=== PATIENT | female | born 2000 | race Caucasian/White ===

== ENCOUNTER 2023-07-24 18:22 | Inpatient (IN) | payer OTHER, SELFPAY ==
[2023-07-24 11:52] VITALS: BP 123/83
[2023-07-24 12:14] LABS: % Basophils 0.7 % (0-2); % Eosinophils 5.7 % (0-6); % Immature Granulocytes 0.2 % (0-0.5); % Lymphocytes 14.8 % (20.5-51.1); % Monocytes 8.5 % (1.7-9.3); % Neutrophils 70.1 % (42.2-75.2); Absolute Eosinophils 0.3 10^3/uL (0-0.7); Absolute Lymphocytes 0.9 10^3/uL (1.2-3.4); Absolute Monocytes 0.5 10^3/uL (0.1-0.6); Absolute Neutrophils 4.2 10^3/uL (1.4-6.5); Hematocrit 39.2 % (37.0-47.0); Hemoglobin 13.2 g/dL (12.0-16.0); Mean Corp Hgb Conc. 33.7 g/dL (33.0-37.0); Mean Corpuscular Hgb 30.1 pg (27.0-31.0); Mean Corpuscular Volume 89.5 fL (81.0-99.0); Mean Platelet Volume 9.3 fL (7.4-10.4); Nucleated Red Blood Cells % 0 %; Platelet Count 318 10^3/uL (130-400); Red Blood Cell Count 4.38 10^6/uL (4.20-5.40); Red Cell Dist. Width 13.2 % (11.5-14.5)
[2023-07-24 12:30] LABS: HCG, Serum Qualitative Screen Negative
[2023-07-24 12:34] LABS: ALT (SGPT) 476 U/L (0-35); AST (SGOT) 261 U/L (14-36); Albumin 4.5 g/dl (3.5-5.0); Alkaline Phosphatase 253 U/L (38-126); Blood Urea Nitrogen 8 mg/dl (7-17); Calcium 9.3 mg/dl (8.4-10.2); Carbon Dioxide 28 mmol/L (22-30); Glucose 105 mg/dl (70-99); Lipase 133 U/L (23-300); Sodium 136 mmol/L (135-145); Total Bilirubin 10.5 mg/dl (0.2-1.3); Total Protein 7.8 g/dl (6.3-8.2); eGFR > 60.00
[2023-07-24 12:39] LABS: Chloride 100 mmol/L (98-107)
--- NOTE | 2023-07-24 14:40 | ED.GENMED ---
History of Present Illness
General
Chief Complaint: Abdominal Symptoms
Time Seen by Provider: 07/24/23 14:17
Travel History
Have you had any contact with someone who has COVID-19?: No
Do you have any symptoms of coronavirus? Fever > 100 degrees, chills, cough, shortness of breath, sore throat, loss of taste or smell, muscle aches, or headache?: No
History of Present Illness
History of Present Illness:
23-year-old female with history of Graves' disease (no longer medicated) presents to the emergency department for evaluation of upper abdominal pain associated with intractable vomiting for the past 5 days. She developed jaundice over the past 24
hours prompting her to come to the hospital. Pain radiates from the epigastrium to the back. She has been unable to tolerate any p.o. food or fluids during this time. No history of intra-abdominal surgeries. She denies alcohol use or illicit
substance use, does have her marijuana medical card but does not use this routinely. Has taken 1 dose of Tylenol daily for the pain.
Past History
Past History
ED Past Medical History: Hyperthyroidism
ED Past Surgical History: Other (Varicose veins)
Social History
Tobacco: Non-smoker
Alcohol: Occasional
Drug: Marijuana
Personal: Single
Living: with family
Review of Systems
Review of Systems
Allergies reviewed?: Yes
All Other Systems: ROS reviewed and negative except as documented in HPI and ROS
Phy Exam
Physical Exam
Physical Exam:
GEN: Well appearing, NAD, WDWN
Eyes: PERRLA, EOMs intact, severe scleral icterus
HENT: NCAT, oral mucosa dry
Lungs: CTAB, no wheezes, rales, rhonchi, normal chest wall excursion
Cardiac: RRR, no M/R/G, no peripheral edema. Radial pulses 2+ bilat
Abdomen: Abdomen is soft, moderate to severe tenderness to the right upper quadrant and epigastrium, there is a positive Ríos sign, no rigidity
Neuro: AO x 3
MSK: No gross deformity or ecchymosis. No edema. No digital clubbing
Skin: No rashes, petechiae. Grossly jaundiced
Psych: Calm, cooperative, proper hygiene
Course
Orders/Labs/Results
Orders:
Orders
07/24/23 11:54
Test Result ONCE
07/24/23 12:04
Complete Blood Count/With Diff Urgent
Comprehensive Metabolic Panel Urgent
Creatine Phosphokinase Urgent
Direct Bilirubin Urgent
HCG, Serum Qualitative Screen Urgent
Lipase Urgent
07/24/23 14:39
0.9% Sodium Chloride 1000 ml [Nss] 1,000 ml IV BOLUS
US Abdomen Complete/Upper Urgent
Comment:
Reason For Exam: RUQ pain/jaundice
07/24/23 14:55
Lactic Acid Q4H
Comment: CANCEL 2nd LACTIC ACID IF 1st LACTIC ACID IS LESS THAN 2
Prothrombin Time Urgent
Urinalysis Reflex To Culture Urgent
Date Specimen was Collected: 07/24/23
Time Specimen was Collected: 14:53
Urine Microscopic Reflex Cult Urgent
Blood Culture Q30M
GLADIS Source: Blood/Venous
Specimen Description:
07/24/23 Dinner
NPO
Allow oral meds: Yes
Allow clear liquids: Sips of Clears
07/24/23 15:09
Blood Culture Q30M
GLADIS Source: Blood/Venous
Specimen Description:
07/24/23 15:38
Add On- LAB Urgent
Tests Added?: direct bilirubin; CPK
07/24/23 17:08
MetroNIDAZOLE 500 MG/100 ML [Flagyl 500 mg] 100 ml IV NOW
07/24/23 17:17
Ciprofloxacin 400 mg/[id number] [Cipro 400 mg] 200 ml IV NOW
07/24/23 17:32
Admit/Transfer Patient As Directed
Co-Sign Provider:
Level of Care: Inpatient admission
Assign to:: Medical/Surgical
Physician / Group: Maikol Maher
Diagnosis: obstructive jaundice
Reason for Hospitalization: obstructive jaundice
Expected length of stay greater than two midnights?: Yes
ELOS- Estimated Length of Stay in days: 3
I certify the patient meets the requirements for IP care: Yes
Code Status As Directed
Resuscitation Status: Full Code
07/24/23 20:26
0.9% Sodium Chloride 1000 ml [Nss] 1,000 ml IV 100 mls/hr
Ketorolac [Toradol] 10 mg IV Q6HPRN PRN
Morphine Sulfate 2 mg IV Q4HPRN PRN
Ondansetron Injectable [Zofran] 4 mg IV Q6HPRN PRN
07/24/23 20:26
Consult Surgery [SURGICAL CONSULT] Routine
Consulting Provider: Shane Gorman
Was physician already notified: Yes
Reason for consult: cholelithiasis
GASTROINTESTINAL CONSULT Routine
Consulting Provider: Bree Mcpherson
Was physician already notified: Yes
Reason for consult: obstructive jaundice
MRI Abdomen [MR Abdomen Without Contrast] Routine
Comment: MRI/MRCP
Reason For Exam: jaundice
Recent pill cam endoscopy?: No
Activity As Directed
Activity Level: As Tolerated
Pneumatic Compression Sleeves As Directed
Type: Knee high
Vital Signs As Directed
Frequency: Per unit guidelines
DX Deep Vein Thrombosis Video Routine
07/25/23 02:00
MetroNIDAZOLE 250 MG/50 ML [Flagyl 250 mg] 50 ml IV Q8H
07/25/23 06:00
Complete Blood Count/No Diff IN AM
Comprehensive Metabolic Panel IN AM
07/25/23 07:00
Ciprofloxacin 400 mg/[id number] [Cipro 400 mg] 200 ml IV Q12H
07/26/23 06:00
Complete Blood Count/No Diff IN AM
Comprehensive Metabolic Panel IN AM
07/27/23 06:00
Complete Blood Count/No Diff IN AM
Comprehensive Metabolic Panel IN AM
Abnormal Lab Results
07/24/23 07/24/23
12:04 14:55
Absolute Lymphs (auto) 0.9 L 10^3/uL
(1.2-3.4)
Lymphocytes % 14.8 L %
(20.5-51.1)
Glucose 105 H mg/dl
(70-99)
Total Bilirubin 10.5 H mg/dl
(0.2-1.3)
Direct Bilirubin 7.5 H mg/dl
(0.0-0.4)
AST 261 H U/L
(14-36)
ALT 476 H U/L
(0-35)
Alkaline Phosphatase 253 H U/L
(38-126)
Urine Ketones 1+ A
(Negative)
Ur Occult Blood Reflex 4+ A
(Negative)
Urine Bilirubin 1+ A
(Negative)
Leukocyte Esterase Rfl Trace A
(Negative)
Urine RBC 7-10 A /HPF
(0-2)
Urine Bacteria (Reflex) Few A
(Negative)
07/24/23 12:04
07/24/23 12:04
Vital Signs
Initial and Last Documented VS:
Initial Vital Signs
Temp Pulse Resp BP Pulse Ox
99.1 F 71 16 123/83 98
07/24/23 11:52 07/24/23 11:52 07/24/23 11:52 07/24/23 11:52 07/24/23 11:52
Last Documented Vital Signs
Temp Pulse Resp BP Pulse Ox
98.8 F 68 16 126/77 100
07/24/23 17:52 07/24/23 17:52 07/24/23 17:52 07/24/23 19:20 07/24/23 19:20
MDM/Problems Addressed
MDM/Problems Addressed:
Unclear etiology to biliary obstruction, could be nonvisualized gallstones. Will admit for GI workup. IV abx initiated
*Critical Care Note
Total Time (30-74mins, 75-104mins- exclusive of procedures): Not Applicable
ED Attending Note
-
Portions of this chart may have been created with voice recognition software.� Occasional wrong word or��sound alike� substitutions may have occurred due to the inherent limitations of voice recognition software.
Discharge Plan
Departure
Patient Disposition: Admit
Date of Disposition: 07/24/23
Time of Disposition: 17:10
Presentation/result/management discussed w/ accepting MD/DO: Hospitalist
Discharge Problem:
Choledocholithiasis with cholecystitis
Interventions
Interventions:
*Risk Screen - Suicide Last Done: 07/24/23 14:14
*General Assessment Last Done: 07/24/23 14:14
*Neglect/Abuse Screening Last Done: 07/24/23 14:14
ED- Fall Risk Assessment Last Done: 07/24/23 14:14
*ED COVID-19 Vaccine History Last Done: 07/24/23 14:14
KQ-Eiivry-Reenucvhjy Assessment Last Done: 07/24/23 14:14
[2023-07-24] MEDS: NSS 1000 IV ×2 (14:54→21:44)
[2023-07-24 15:15] LABS: Urine Albumin Negative (Neg - Trace); Urine Bilirubin 1+ (Negative); Urine Character Clear (Clear); Urine Color Yellow; Urine Glucose Negative (Negative); Urine Ketone 1+ (Negative); Urine Leukocyte Trace (Negative); Urine Nitrite Negative (Negative); Urine Occult Blood 4+ (Negative); Urine Specific Gravity 1.005 (<1.030); Urine Urobilinogen Negative (Neg - 1+)
[2023-07-24 15:25] LABS: INR 1.03; PT 13.5 Sec (11.4-14.6)
[2023-07-24 15:26] LABS: Lactic Acid 0.8 mmol/L (0.7-2.0)
[2023-07-24 15:31] LABS: Urine Bacteria Few (Negative); Urine White Cell 0-2 /HPF (0-5)
[2023-07-24 16:39] LABS: Creatine Phosphokinase 45 U/L (30-135); Direct Bilirubin 7.5 mg/dl (0.0-0.4)
[2023-07-24] MEDS: FLAGYL 500 MG 100 IV (17:18)
--- NOTE | 2023-07-24 17:27 | HPS.HSE ---
Addendum entered and electronically signed by Maikol Maher MD 07/24/23 18:31:
I saw and examined the patient.
The MATERIALS MANAGEMENT CLERK's note was reviewed and I agree with the note.
23-year-old female with past medical history of hyperparathyroidism, Graves' disease came to ER for new onset of right epigastric pain with some radiation to back. Initially started after eating hamburger and patient initially felt this was related
to gastritis. Did not resolve and continued to get worse. Patient have some nausea without vomiting. No change in bowel habits.
HEENT: No pallor, cyanosis, or jaundice. Throat clear.
NECK: Supple. No JVD.
RESPIRATORY: Lungs clear to auscultation.
CVS: S1, S2 normal. RRR. No murmur, rub or gallop.
ABDOMEN: Soft, RUQ tenderness
EXTREMITIES: No peripheral cyanosis or edema.
SENIOR ORACLE APPLICATIONS DEVELOPER: AOx3. No focal deficits.
Obstructive jaundice
Suspected choledocholithiasis
Acute transaminitis
-Total bilirubin elevated 10.5, do globin 7.5. ALT 476 ALT 261 ALP 253
-Abdomen ultrasound showing common bile duct enlarged to 0.85 cm
-Case discussed with GI/general surgery and patient will require MRI MRCP
-Allergy to penicillin cover with ciprofloxacin and Flagyl
-N.p.o./IV fluid/pain medication/Zofran
-Admit MedSurg
Original Note:
Family Physician
-
Family Physician: Hemalatha Fontenot
Chief Complaint
-
epigastric abdominal pain assoicated with n/v
History of Present Illness
23 year old with PMH for hyperparathyroidism, graves disease presented to us with epigastric abdominal pain radiating to right upper back for past 5 days. she noticed yellowish of her eyes and skin for past two days, more evident yesterday. stated
poor oral intake. patient not able to tolerate any oral intake. stated constipation for past few days.she had low grade temp at home. stated chills. denied NEAL, dizzy or syncopal episode. denied chest pain, sob. denied dysuria or hematuria.
received if Flagyl and Cipro fro choledocholithiasis with cholecystitis. admitting for further management.
Medical History
Past Medical History
Past Medical History: Reports Other
Additional Past Medical History:
hyperparathyroidism
graves disease
Past Surgical History: Reports None
Social History
Tobacco: Former Smoker
Alcohol: Occasional
Drug: None
Employment: Not Employed
Family History
Family History: Not pertinent
Allergies / Home Medications
Allergies reflects when Allergies were last updated in [facility].
Home Medications with original date entered in [facility]
Allergy/Medication List:
Allergies
Allergy/AdvReac Type Severity Reaction Status Date / Time
methimazole Allergy Intermediate Hives Verified 05/27/23 22:54
latex Allergy Rash Verified 05/27/23 22:54
Penicillins Allergy Rash Verified 05/27/23 22:54
'MIGRAINE COCKTAIL' Allergy Unknown Uncoded 05/27/23 22:54
Home Medications
vitamin-ferrous fumarate 28 mg iron-folic acid 800 mcg tablet 1 ea PO DAILY Supplement 05/26/18
acetaminophen 325 mg tablet 650 mg PO Q4HPRN PRN mild pain 09/07/21
ibuprofen 600 mg tablet 600 mg PO Q4HPRN PRN moderate pain/cramps 09/07/21
pantoprazole 40 mg tablet,delayed release (Protonix) 40 mg PO DAILY Gastrointestinal issue #30 tabs 05/28/23
sucralfate 1 gram tablet (Carafate) 1 g PO ACHS Gastrointestinal issue #40 tabs 05/28/23
Review of Systems
-
Constitutional: Reports Fever and Chills
EENT: Reports No Symptoms
Respiratory: Reports No Symptoms
Cardiac: Reports No Symptoms
Abdomen/GI: Reports Abdominal Pain, Nausea and Vomiting
: Reports No Symptoms
Musculoskeletal: Reports No Symptoms
Skin: Reports No Symptoms
Neurological: Reports No Symptoms
Endocrine: Reports No Symptoms
Hematologic/Lymphatic: Reports No Symptoms
Psych: Reports No Symptoms
Physical Exam
Vital Signs
Vital Signs
Temp Pulse Resp BP Pulse Ox
99.1 F 71 16 123/83 98
07/24/23 11:52 07/24/23 11:52 07/24/23 11:52 07/24/23 11:52 07/24/23 11:52
Physical Exam
General: Well Developed, Well Nourished and No Apparent Distress
HEENT: NormoCephalic, Moist mucous membranes and Atraumatic
Respiratory: Clear
Cardiac: S1/S2 and Regular Rhythm; No Murmur or Rub
GI: Soft, Non Distended, Normal Bowel Sounds and Distended; No Organomegaly
Rectal: Deferred by Provider
Musculoskeletal: No Clubbing, No Cyanosis and No Edema
Skin: No Rash
Neuro: AO x 3 and Nonfocal/grossly intact
Psych: Calm
Laboratory Results
-
07/24/23 12:04
07/24/23 12:04
Laboratory Results
PT 13.5 Sec (11.4-14.6) 07/24/23 14:55
INR 1.03 07/24/23 14:55
Lactic Acid 0.8 mmol/L (0.7-2.0) 07/24/23 14:55
Total Bilirubin 10.5 mg/dl (0.2-1.3) H 07/24/23 12:04
AST 261 U/L (14-36) H 07/24/23 12:04
ALT 476 U/L (0-35) H 07/24/23 12:04
Alkaline Phosphatase 253 U/L (38-126) H 07/24/23 12:04
Lipase 133 U/L (23-300) 03/06/24 12:04
Data Reviewed
-
Ultrasound: Report Reviewed by me
Lab Data: Labs Reviewed by me
Impression/Plan
-
#epigastric pain/vomiting/jaundice likely from obstructive jaundice/ Choledocholithiasis
-T bili 10.5, direct bili 7.5, ast 261,alt 476, alk 253
-US shows Prominent size gallbladder containing sludge and/or tiny stones with thickened wall. Negative sonographic Ríos's sign.Enlarged common bile duct and findings suggesting mild intrahepatic biliary tract dilatation.
Likely hepatomegaly with findings suggesting diffuse fatty liver.
-blood culture sent from ER
-Cipro, Flagyl
-NPO
-fluids
-GI/surgery consulted
#DVT Prophylaxis
-scd
#CODE status
-full code
[2023-07-24] MEDS: CIPRO 400 MG 200 IV (17:33)
[2023-07-24 17:52] VITALS: BP 118/71
[2023-07-24 19:20] VITALS: BP 126/77
[2023-07-24 20:00] VITALS: BP 121/76
[2023-07-24 22:00] VITALS: BP 124/69
[2023-07-24] MEDS: TORADOL 10 MG IV (22:04)
[2023-07-25] VITALS (13 sets, daily range): BP systolic 99–129; BP diastolic 43–79; BMI 26.7
[2023-07-25] MEDS: FLAGYL 500 MG 100 IV ×3 (01:29→22:29)
[2023-07-25] MEDS: CIPRO 400 MG 200 IV ×2 (05:31→17:31)
[2023-07-25] MEDS: NSS 1000 IV ×2 (06:29→16:21)
[2023-07-25 06:57] LABS: Hematocrit 33.5 % (37.0-47.0); Hemoglobin 11.1 g/dL (12.0-16.0); Mean Corp Hgb Conc. 33.1 g/dL (33.0-37.0); Mean Corpuscular Hgb 29.9 pg (27.0-31.0); Mean Corpuscular Volume 90.3 fL (81.0-99.0); Mean Platelet Volume 9.3 fL (7.4-10.4); Platelet Count 278 10^3/uL (130-400); Red Blood Cell Count 3.71 10^6/uL (4.20-5.40); Red Cell Dist. Width 13.5 % (11.5-14.5); White Blood Cell Count 5.2 10^3/uL (4.8-10.8)
[2023-07-25 07:38] LABS: ALT (SGPT) 397 U/L (0-35); AST (SGOT) 198 U/L (14-36); Albumin 3.4 g/dl (3.5-5.0); Alkaline Phosphatase 179 U/L (38-126); Blood Urea Nitrogen 11 mg/dl (7-17); Calcium 8.7 mg/dl (8.4-10.2); Carbon Dioxide 26 mmol/L (22-30); Chloride 103 mmol/L (98-107); Estimated Creatinine Clearance > 125 ml/min; Glucose 86 mg/dl (70-99); Sodium 138 mmol/L (135-145); Total Bilirubin 9.5 mg/dl (0.2-1.3); Total Protein 6.1 g/dl (6.3-8.2); eGFR > 60.00
[2023-07-25 08:06] LABS: Potassium 4.2 mmol/L (3.5-5.1)
[2023-07-25 08:25] LABS: Direct Bilirubin 6.5 mg/dl (0.0-0.4)
--- NOTE | 2023-07-25 11:12 | CON.GI ---
Addendum entered and electronically signed by Bree Mcpherson MD 07/25/23 12:02:
I saw and examined the patient.
The FISHERIES TECHNICIAN's note was reviewed and I agree with the note.
Comment: This is a very pleasant 23-year-old female who has been having epigastric pain radiating to the back since Saturday which progressively worsened she went to the urgent care on Saturday and was thought to be gastritis and was given Carafate
and PPI. The pain progressively worsened prompting her to come into the ER last night. She was found to have significantly elevated LFTs with mostly obstructive pattern, normal lipase and ultrasound showed sludge and stones in the gallbladder with
enlarged common bile duct. She subsequently had an MRI with MRCP which confirms the CBD stone with ductal dilatation. No fevers or chills. She had a similar episode in May and came to the emergency room ultrasound at that time was negative for
gallstones, normal LFTS then and was treated as gastritis with PPI without much improvement of symptoms.
Assessment and plan gallstones with choledocholithiasis and abnormal LFTs secondary to this, discussed with Dr. Gates she is going to be scheduled for an ERCP today currently has no signs of cholangitis but also already on antibiotics for probable
cholecystitis. surgery has been consulted, timing of cholecystectomy will be per surgery.
Original Note:
Consultation
-
Date/Time Consultation Requested: 07/24/232025
Date/Time Consultation Performed: 07/25/23 0900
Requesting Provider: Dr. Kvng Maher
Performing Provider: Dr. Mcpherson/OCTAVIA Snider
Reason for Consultation: RUQ pain, elevated LFTs
Medical History
Chief Complaint / HPI
Chief Complaint: RUG pain, jaundice
History of Present Illness:
23-year-old female with past medical history of Graves' disease not on any current medication presents to the emergency room with acute onset of epigastric/right upper quadrant pain, dark urine and yellowing of the eyes. Asked to evaluate for the
same. Patient states that last Saturday she was eating a hamburger and shortly thereafter she developed epigastric discomfort that she describes as sharp and glasslike with radiation to her right upper quadrant and through to her back. She had
associated low-grade temp in the 99.0-100 range. She also had nausea and vomiting that stopped yesterday. She states that the pain has been ongoing since that time. She also developed darker urine. She has not had a bowel movement since that
time. She noticed that her eyes started to become yellow. And she sought the attention of her PCP and was advised to come to the emergency room. Her and child ate the same meal. They had no such symptoms. She does have a history of
piercings. She does have tattoos 1 of which was a homemade 'poke' tattoo. None of them are new. She has been using acetaminophen 1000 mg in the morning and 1000 mg in the evening for pain relief. Also ibuprofen either 200 to 400 mg daily as well
for her discomfort. She does not smoke. She drinks rare alcohol. She has had no surgeries. She denies any chills, melena, hematochezia, dysphagia, odynophagia, early satiety or unintentional weight loss. She denies any acholic stools as she has
had none since her pain started. She denies any supplements. No prior history of liver disease or elevated LFTs in the past. The patient states that she had similar symptoms as far as pain goes approximately 1 month ago and was seen in the
emergency room for the same. They gave her Carafate and omeprazole which did not improve her symptoms. The patient had normal liver enzymes at that time in May. Currently the patient's total bilirubin is 9.5 down from 10.5, direct is 6.5 down
from 7.5, AST is 198 down from 261, ALT is 397 down from 476 and alk phos is 179 down from 253. The patient states that her pain is slightly decreased compared to when she arrived. She does not have a leukocytosis here. Her Tmax is 99.1. She has
been placed on Cipro and Flagyl.
Past Medical History
Past Medical History: Other (graves disease)
Past Surgical History: None
Social History
Tobacco: Non-Smoker
Alcohol: None (rare)
Drug: None
Living: With Family
Family History
Family History: Other (No family history of gastrointestinal malignancy or inflammatory bowel disease)
Allergies / Home Medications
Allergy/AdvReac Type Severity Reaction Status Date / Time
methimazole Allergy Intermediate Hives Verified 05/27/23 22:54
latex Allergy Rash Verified 05/27/23 22:54
Penicillins Allergy Rash Verified 05/27/23 22:54
'MIGRAINE COCKTAIL' Allergy Unknown Uncoded 05/27/23 22:54
Medication Instructions Recorded
pantoprazole 40 mg tablet,delayed 40 mg PO DAILY Gastrointestinal 05/28/23
release (Protonix) issue #30 tabs
sucralfate 1 gram tablet (Carafate) 1 g PO ACHS Gastrointestinal issue 05/28/23
#40 tabs
acetaminophen 325 mg tablet 650 mg PO Q4HPRN PRN mild 07/24/23
pain/fever
desogestrel 0.15 mg-ethinyl 1 tab PO DAILY@1530 07/24/23
estradiol 0.03 mg tablet (Apri)
ibuprofen 200 mg capsule 400 mg PO Q6H PRN mild 07/24/23
pain/fever/cramping
Review of Systems
-
All other systems: A 12 pt ROS was Negative except as stated above in HPI
Vital Signs
Temp Pulse Resp BP Pulse Ox
98.4 F 54 16 129/71 98
07/25/23 07:00 07/25/23 08:42 07/25/23 08:42 07/25/23 08:42 07/25/23 08:42
Physical Exam
Exam
General: No Apparent Distress
HEENT: Other (sclera icteric)
Respiratory: Clear
Cardiac: Regular Rhythm
GI: Soft, Non Distended, Normal Bowel Sounds and Tender (+ mild tenderness epigastric/periumbilical, moderate tenderness RUQ)
Musculoskeletal: No Edema
Skin: Warm and Dry
Neuro: AO x 3
Psych: Calm
Results
WBC 5.2 10^3/uL (4.8-10.8) 07/25/23 05:57
Hgb 11.1 g/dL (12.0-16.0) L 07/25/23 05:57
Hct 33.5 % (37.0-47.0) L 07/25/23 05:57
MCV 90.3 fL (81.0-99.0) 07/25/23 05:57
Plt Count 278 10^3/uL (130-400) 07/25/23 05:57
Absolute Neuts (auto) 4.2 10^3/uL (1.4-6.5) 07/24/23 12:04
PT 13.5 Sec (11.4-14.6) 07/24/23 14:55
INR 1.03 07/24/23 14:55
Sodium 138 mmol/L (135-145) 07/25/23 05:57
Potassium 4.2 mmol/L (3.5-5.1) 07/25/23 05:57
Chloride 103 mmol/L (98-107) 07/25/23 05:57
Carbon Dioxide 26 mmol/L (22-30) 07/25/23 05:57
BUN 11 mg/dl (7-17) 07/25/23 05:57
Creatinine 0.6 mg/dL (0.6-1.0) 07/25/23 05:57
Calcium 8.7 mg/dl (8.4-10.2) 07/25/23 05:57
Total Bilirubin 9.5 mg/dl (0.2-1.3) H 07/25/23 05:57
AST 198 U/L (14-36) H 07/25/23 05:57
ALT 397 U/L (0-35) H 07/25/23 05:57
Alkaline Phosphatase 179 U/L (38-126) H 07/25/23 05:57
Lipase 133 U/L (23-300) 07/24/23 12:04
Diagnostic Image Results:
MRI/MRCP:
IMPRESSION: Subtle dependent small foci of decreased T2 signal intensity within the posterior aspect of the gallbladder lumen, compatible with sludge and/or small stones. The gallbladder is distended. There is a small amount of edema between the
gallbladder and the liver.
Diffuse intrahepatic bile duct dilation, as well as dilation of the common hepatic duct and the common bile duct. There is a filling defect within the distal common bile duct, compatible with common bile duct calculus, with measured diameter of 6 mm.
�
Electronically signed by Danny Dao MD 07/25/2023 10:26 AM
US Abd: IMPRESSION: Prominent size gallbladder containing sludge and/or tiny stones with thickened wall. Negative sonographic Ríos's sign.
Enlarged common bile duct and findings suggesting mild intrahepatic biliary tract dilatation.
Likely hepatomegaly with findings suggesting diffuse fatty liver.
Electronically signed by Gilberto Berrios MD 07/24/2023 5:03 PM
Prior GI Procedures:
EGD: Never had
Colonoscopy: Never had
Assessment / Plan
-
23-year-old female with past medical history of Graves' disease not on any current medication presents to the emergency room with acute onset of epigastric/right upper quadrant pain, dark urine and yellowing of the eyes. Asked to evaluate for the
same. Patient states that last Saturday she was eating a hamburger and shortly thereafter she developed epigastric discomfort that she describes as sharp and glasslike with radiation to her right upper quadrant and through to her back. Currently
the patient's total bilirubin is 9.5 down from 10.5, direct is 6.5 down from 7.5, AST is 198 down from 261, ALT is 397 down from 476 and alk phos is 179 down from 253. MRI/MRCP shows diffuse intrahepatic ductal dilatation as well as dilatation of
the common hepatic duct and the common bile duct. There is a filling defect within the distal CBD compatible with common bile duct calculus measured at 6 mm.
Impression:
Choledocholithiasis
Cholelithiasis
Plan:
-NPO
-IVF
-ERCP today planned
-Continue Abx
-Surgical consult pending
-CBC, BMP, LFTs in am
-
-
Thank you for consultation and allowing me to participate in the patient's care. Please call the recreation specialist GI physician during the after hours with any questions or concerns.
--- NOTE | 2023-07-25 13:09 | CON.GS ---
Consultation
-
Date/Time Consultation Requested: 07/24/2023
Date/Time Consultation Performed: 07/25/2023
Requesting Provider: Hospitalist
Performing Provider: Sherif
Reason for Consultation: Abdominal pain, jaundice
Medical History
-
Chief Complaint: Yellow skin/eyes; abdominal pain
History of Present Illness:
Patient is a very pleasant 23-year-old female who was in her usual baseline state of health until Saturday, 5 days ago when she developed the acute onset of epigastric abdominal pain radiating to the back and right scapular area after having a
hamburger.
She states that she had had a similar episode back in May for which she presented to the emergency department. Reviewing records she had a mild elevation of her white blood cell count at that time of 13.3 but her liver function profile testing
was all within normal limits. Abdominal ultrasound on 05/28/2023 identified physiologically distended gallbladder without shadowing calculi or wall thickening. Negative sonographic Ríos's and no biliary ductal dilation, 5 mm. She was discharged
with presumed gastritis.
In the interim she has altered her diet to avoid spicy foods which she states significantly improved her symptoms and she essentially had no recurrence until having a hamburger on Saturday. Her pain persisted with nausea and intermittent vomiting.
She thought it was her gastritis so continue to observe it at home until her noticed that her skin was turning yellow and her pain became even more severe and she was advised by her primary to go for emergency department evaluation yesterday.
She continues with an ache in the epigastric and back area. The right scapular pain is a bit improved. Nausea has subsided without further vomiting. Continues with dark tea colored urine and yellow skin. Last bowel movement the other day was
normal.
Past Medical History
Past Medical History: Hyperthyroidism (Graves' disease)
Past Surgical History: None
Social History
Tobacco: Non-Smoker
Alcohol: Occasional
Personal:
Living: With Family
Family History
Family History: Reviewed & Noncontributory
Allergies / Home Medications
Allergy/AdvReac Type Severity Reaction Status Date / Time
methimazole Allergy Intermediate Hives Verified 05/27/23 22:54
latex Allergy Rash Verified 05/27/23 22:54
Penicillins Allergy Rash Verified 05/27/23 22:54
'MIGRAINE COCKTAIL' Allergy Unknown Uncoded 05/27/23 22:54
Medication Instructions Recorded Confirmed Type
pantoprazole 40 mg tablet,delayed 40 mg PO DAILY Gastrointestinal 05/28/23 07/24/23 Rx
release (Protonix) issue #30 tabs
sucralfate 1 gram tablet (Carafate) 1 g PO ACHS Gastrointestinal issue 05/28/23 07/24/23 Rx
#40 tabs
acetaminophen 325 mg tablet 650 mg PO Q4HPRN PRN mild 07/24/23 07/24/23 History
pain/fever
desogestrel 0.15 mg-ethinyl 1 tab PO DAILY@1530 07/24/23 07/24/23 History
estradiol 0.03 mg tablet (Apri)
ibuprofen 200 mg capsule 400 mg PO Q6H PRN mild 07/24/23 07/24/23 History
pain/fever/cramping
Review of Systems
-
History Source: Patient and Family
All other systems: Negative unless noted
A 10 point review of systems was completed, and was negative except as per HPI.
Physical Exam
Vital Signs
Temp Pulse Resp BP Pulse Ox
98.4 F 54 16 129/71 98
07/25/23 07:00 07/25/23 08:42 07/25/23 08:42 07/25/23 08:42 07/25/23 08:42
07/24/23 07/25/23 07/26/23
06:59 06:59 06:59
Actual Weight 86.5 kg
Body Mass Index (BMI) 0.0
Lab Results
07/25/23 05:57
07/25/23 05:57
WBC 5.2 10^3/uL (4.8-10.8) 07/25/23 05:57
Hgb 11.1 g/dL (12.0-16.0) L 07/25/23 05:57
Hct 33.5 % (37.0-47.0) L 07/25/23 05:57
Plt Count 278 10^3/uL (130-400) 07/25/23 05:57
Abs Immat Gran (auto) 0.0 10^3/uL (0-0.05) 07/24/23 12:04
Neutrophils % 70.1 % (42.2-75.2) 07/24/23 12:04
Physical Exam
General: Well Developed, Well Nourished, No Apparent Distress and Comfortable
HEENT: Normocephalic, Moist Mucous Membranes and Scleral Icterus
Respiratory: Non Labored Respirations
Cardiac: Regular Rhythm
GI: Soft, Non Distended and Tender (Epigastric and right upper quadrant. No rebound rigidity or guarding.)
Skin: Warm and Jaundice
Neuro: AO x 3
Psych: Calm
Data Reviewed
-
Ultrasound: Image Personally Visualized and interpreted, Report Reviewed by me, Discussed with Physician, Discussed with Patient and Discussed with Family
MRI: Image Personally Visualized and interpreted, Report Reviewed by me, Discussed with Patient and Discussed with Family
Assessment / Plan
-
Assessment: 23-year-old female presenting with obstructive jaundice secondary to choledocholithiasis. Cholelithiasis also identified on MRI/ultrasound with sludge/small stones.
Reviewed with patient and her boyfriend at bedside. We discussed pathophysiology of choledocholithiasis and gallstone mediated diseases.
She will be evaluated by GI service and would anticipate proceeding with ERCP for management of choledocholithiasis.
We discussed subsequent indications for cholecystectomy for definitive management of her gallstone mediated disease which she is in agreement with.
Laparoscopic cholecystectomy was reviewed in detail including the operative technique utilizing a bedside diagram and drawing. We discussed alternative treatment options, benefits and risks such as but not limited to bleeding, infectious or wound
related complications, iatrogenic injury to surrounding viscera, bile leak or bile duct injury. We discussed typical postoperative recovery pending operative findings.
Any of the patient's concerns or questions were fully addressed.
Plan: ERCP with GI today
Patient has been tentatively added onto the OR schedule tomorrow, 07/26/2023 for lap maría elena
--- NOTE | 2023-07-25 13:21 | W.PN.HOSP.TC ---
Today's Communication/Plan
-
for ERCP today
continue abx
Assessment / Plan
Assessment / Plan
Obstructive jaundice
Suspected choledocholithiasis
Acute transaminitis
-Total bilirubin elevated 10.5, do globin 7.5.� ALT 476 ALT 261 ALP 253 in ER
-Abdomen ultrasound showing common bile duct enlarged to 0.85 cm
-MRI/MRCP showing 6mm CBD stone with ductal dilation
-Allergy to penicillin cover with ciprofloxacin and Flagyl
-NPO/IVF/pain meds
-Going for ERCP today.
DVT PPX - scd
Full code
Anticipated Discharge: Within 24 hours
Subjective/Interval History
-
Date of Service: July 25, 2023
abd pain, no nausea/vomiting
afebrile
Objective Data
-
Labs:
Laboratory Results
07/25/23
05:57
WBC 5.2
Hgb 11.1 L
Hct 33.5 L
Plt Count 278
Sodium 138
Potassium 4.2
Chloride 103
Carbon Dioxide 26
BUN 11
Creatinine 0.6
Glucose 86
Calcium 8.7
Total Bilirubin 9.5 H
AST 198 H
ALT 397 H
Alkaline Phosphatase 179 H
Vital Signs:
Vital Signs
Temp Pulse Resp BP Pulse Ox
98.4 F 54 16 129/71 98
07/25/23 07:00 07/25/23 08:42 07/25/23 08:42 07/25/23 08:42 07/25/23 08:42
Review of Systems
-
Respiratory: Reports No Symptoms
Cardiac: Reports No Symptoms
Abdomen/GI: Reports Abdominal Pain; Denies Nausea or Vomiting
Physical Exam
-
General: Obese; Negative Fever
HEENT: Negative Oxygen
Neuro: Awake, Alert and Oriented
[2023-07-25] MEDS: TORADOL 10 MG IV (13:30)
[2023-07-25 19:11] LABS: Hepatitis B Surface Antigen Negative (Negative)
[2023-07-25 19:14] LABS: Hepatitis A IgM Antibody Negative (Negative); Hepatitis B Core Ab, IgM Negative (Negative)
[2023-07-25 19:28] LABS: Hepatitis B Surface Antibody Positive; Hepatitis C Antibody Negative (Negative)
[2023-07-25] MEDS: MELATONIN 3 MG PO (23:27)
[2023-07-26] VITALS (11 sets, daily range): BP systolic 101–122; BP diastolic 49–72
[2023-07-26] MEDS: NSS 1000 IV ×2 (02:51→13:28)
[2023-07-26] MEDS: CIPRO 400 MG 200 IV (05:23)
[2023-07-26] MEDS: FLAGYL 500 MG 100 IV ×2 (06:04→14:16)
--- NOTE | 2023-07-26 07:32 | PTCARENOTE ---
Pt able to make her needs known, denies pain. Pt resting comfortably. Call huber in reach. Plan of care continued.
[2023-07-26 07:51] LABS: % Basophils 0.5 % (0-2); % Eosinophils 4.2 % (0-6); % Immature Granulocytes 0.3 % (0-0.5); % Lymphocytes 31.3 % (20.5-51.1); % Monocytes 7.8 % (1.7-9.3); % Neutrophils 55.9 % (42.2-75.2); Absolute Eosinophils 0.2 10^3/uL (0-0.7); Absolute Lymphocytes 1.8 10^3/uL (1.2-3.4); Absolute Monocytes 0.5 10^3/uL (0.1-0.6); Absolute Neutrophils 3.2 10^3/uL (1.4-6.5); Hematocrit 32.8 % (37.0-47.0); Hemoglobin 10.8 g/dL (12.0-16.0); Mean Corp Hgb Conc. 32.9 g/dL (33.0-37.0); Mean Corpuscular Hgb 29.8 pg (27.0-31.0); Mean Corpuscular Volume 90.6 fL (81.0-99.0); Mean Platelet Volume 9.5 fL (7.4-10.4); Nucleated Red Blood Cells % 0 %; Platelet Count 274 10^3/uL (130-400); Red Blood Cell Count 3.62 10^6/uL (4.20-5.40); White Blood Cell Count 5.8 10^3/uL (4.8-10.8)
[2023-07-26 08:26] LABS: ALT (SGPT) 307 U/L (0-35); AST (SGOT) 68 U/L (14-36); Albumin 3.2 g/dl (3.5-5.0); Alkaline Phosphatase 162 U/L (38-126); Blood Urea Nitrogen 10 mg/dl (7-17); Calcium 8.8 mg/dl (8.4-10.2); Carbon Dioxide 27 mmol/L (22-30); Chloride 102 mmol/L (98-107); Direct Bilirubin 1.4 mg/dl (0.0-0.4); Estimated Creatinine Clearance > 125 ml/min; Glucose 108 mg/dl (70-99); Potassium 4.4 mmol/L (3.5-5.1); Sodium 136 mmol/L (135-145); Total Bilirubin 3.3 mg/dl (0.2-1.3); Total Protein 5.9 g/dl (6.3-8.2); eGFR > 60.00
--- NOTE | 2023-07-26 09:37 | W.PN.GS2 ---
Today's Communication / Plan
-
OR today.
Assessment / Plan
-
Will plan for a laparoscopic cholecystectomy today.
N.p.o., IV fluids, IV antibiotics on-call to the OR.
Risks/Benefits/Alternatives, expected postoperative course and possible complications (bleeding, infection, injury to surrounding structures, acute/chronic pain) discussed at length. Patient wishes to proceed with surgery. All questions answered.
Consent obtained.
I spent roughly 45 minutes in total for the care of this patient today including direct patient care and counseling, reviewing labs, imaging, coordination of care, as well as documentation.
Time Spent
Total Time Spent with Patient (in minutes): 15
Subjective Data
-
Date of Service: July 26, 2023
Interval Events:
No acute events overnight. Uneventful ERCP yesterday. Slept well. Pain Controlled. Denies Nausea/Vomiting, +bowel function. Tolerating diet.
Objective Data
-
Intake and Output
07/25/23 07/26/23 07/27/23
06:59 06:59 06:59
Intake Total 1300 / 1300
Balance 1300 / 1300
Intake:
Oral fluids 500 / 500
IV fluids (Total) 800 / 800
LR 50 / 50
Nss 1,000 ml @ 100 mls/hr IV . 50 / 50
Q10H ABISAI Rx#:[id number]
Other:
Number of approximated MODERATE 3
amounts of urine
Number of approximated LARGE 8
amounts of urine
Vital Signs
Temp Pulse Resp BP Pulse Ox
98 F 73 18 115/49 99
07/26/23 07:00 07/26/23 07:00 07/26/23 07:00 07/26/23 07:00 07/26/23 07:00
Lab Results
07/26/23 07:13
07/26/23 07:13
Calcium 8.8 mg/dl (8.4-10.2) 07/26/23 07:13
Total Bilirubin 3.3 mg/dl (0.2-1.3) H D 07/26/23 07:13
Direct Bilirubin 1.4 mg/dl (0.0-0.4) H 07/26/23 07:13
AST 68 U/L (14-36) H 07/26/23 07:13
ALT 307 U/L (0-35) H 07/26/23 07:13
Alkaline Phosphatase 162 U/L (38-126) H 07/26/23 07:13
Total Protein 5.9 g/dl (6.3-8.2) L 07/26/23 07:13
Albumin 3.2 g/dl (3.5-5.0) L 07/26/23 07:13
Physical Exam
-
GENERAL/NEURO: Awake, Alert, no distress
CHEST: Unlabored breathing on RA
ABDOMEN: Soft, Non-Tender, Non-Distended
--- NOTE | 2023-07-26 10:05 | W.PN.HOSP.TC ---
Today's Communication/Plan
-
for lap maría elena today
will d/c abx at discharge
Assessment / Plan
Assessment / Plan
Obstructive jaundice
Suspected choledocholithiasis
Acute transaminitis
-Total bilirubin elevated 10.5, do globin 7.5.� ALT 476 ALT 261 ALP 253 in ER
-Abdomen ultrasound showing common bile duct enlarged to 0.85 cm
-MRI/MRCP showing 6mm CBD stone with ductal dilation
-Allergy to penicillin cover with ciprofloxacin and Flagyl
-S/p ERCP with sphincterotomy and CBD stone removal on 07/24
-General surgery taking for elective lap cholecystectomy today
DVT PPX - scd
Full code
Anticipated Discharge: Within 24 hours
Subjective/Interval History
-
Date of Service: July 26, 2023
Denies of having any problems overnight
Abdominal pain completely resolved
No nausea or vomiting
Afebrile
Objective Data
-
Labs:
Laboratory Results
07/26/23
07:13
WBC 5.8
Hgb 10.8 L
Hct 32.8 L
Plt Count 274
Sodium 136
Potassium 4.4
Chloride 102
Carbon Dioxide 27
BUN 10
Creatinine 0.6
Glucose 108 H
Calcium 8.8
Total Bilirubin 3.3 H D
AST 68 H
ALT 307 H
Alkaline Phosphatase 162 H
Vital Signs:
Vital Signs
Temp Pulse Resp BP Pulse Ox
98 F 73 18 115/49 99
07/26/23 07:00 07/26/23 07:00 07/26/23 07:00 07/26/23 07:00 07/26/23 07:00
I&O
07/25/23 07/26/23 07/27/23
06:59 06:59 06:59
Intake Total 1300 / 1300
Balance 1300 / 1300
Review of Systems
-
Respiratory: Reports No Symptoms
Cardiac: Reports No Symptoms
Abdomen/GI: Reports No Symptoms
Physical Exam
-
General: Obese; Negative Fever
HEENT: Negative Oxygen
Neuro: Awake, Alert and Oriented
--- NOTE | 2023-07-26 10:12 | CM ---
center human resources manager reviewed patient's chart and met with patient and patient lives with her boyfriend and 2 children in a 2 story home, with 14 steps to enter, patient is independent with adl's and ambulation, no dme, patient drives, patient has a
prescription plan and uses [facility] pharmacy.
PCP: Hemalatha Liang
Plan; Home when stable, no needs.
--- NOTE | 2023-07-26 10:27 | W.SUR.PREOP ---
Pre-Operative Surgical Note
-
I have examined this patient prior to the performance of the scheduled procedure.
The patient's condition is unchanged from the time of the current History and
Physical and the patient is able to undergo the scheduled procedure.
--- NOTE | 2023-07-26 12:00 | W.IMMPOSTOP ---
Addendum entered and electronically signed by Shane Gorman MD 07/26/23 16:14:
#[id number]
Original Note:
Surgical Immed Post Op Note
-
Primary Surgeon: Sherif
Assisting Surgeon: Fara WILLIS
Pre-op Diagnosis: ACC and choledocholithiasis
Post-op Diagnosis: ACC and choledocholithiasis
Procedure Performed: Lap Adela
Anesthesia Type: GETA + 0.25% Marcaine
Specimen / Cultures: GB
Estimated Blood Loss: 10mL
Complications: none immediate
Operative Findings: tensely distended and inflamed GB with significant wall thickening. anterior cystic artery and posterior branch controlled with clips. dilated cystic duct isolated and divided with endo TUCKER cat 30mm stapler. no disruption of
GB with cholecystectomy.
[2023-07-26] MEDS: DILAUDID 0.25 MG IV (12:51)
--- NOTE | 2023-07-26 14:01 | PTCARENOTE ---
Patient received from PACU in bed; SCDs on; IVF infusing; Surgical site assessed with CERTIFIED INDOOR ENVIRONMENTALIST; Patient and significant other oriented to room and unit; Call huber within reach; Bed in lowest position, wheels locked; Assessment ongoing
--- NOTE | 2023-07-26 14:14 | W.PN.GI.CBS2 ---
Today's Communication / Plan
-
GI s/o
Assessment / Plan
-
23-year-old female with past medical history of Graves' disease not on any current medication presents to the emergency room with acute onset of epigastric/right upper quadrant pain, dark urine and yellowing of the eyes. Asked to evaluate for the
same. Patient states that last Saturday she was eating a hamburger and shortly thereafter she developed epigastric discomfort that she describes as sharp and glasslike with radiation to her right upper quadrant and through to her back. Currently
the patient's total bilirubin is 9.5 down from 10.5, direct is 6.5 down from 7.5, AST is 198 down from 261, ALT is 397 down from 476 and alk phos is 179 down from 253. MRI/MRCP shows diffuse intrahepatic ductal dilatation as well as dilatation of
the common hepatic duct and the common bile duct. There is a filling defect within the distal CBD compatible with common bile duct calculus measured at 6 mm.
s/p ERCP yesterday with stone extraction. Went to OR today. LFT improved this am. GI will s/o, call with questions.
Total Time Spent with Patient (in minutes): 35
Subjective
Subjective
Date of Service: July 26, 2023
went to OR today for maría elena
Objective
Data Reviewed
Laboratory Data:
Laboratory Results
07/26/23 07:13
07/26/23 07:13
Laboratory Results
PT 13.5 Sec (11.4-14.6) 07/24/23 14:55
INR 1.03 07/24/23 14:55
Total Bilirubin 3.3 mg/dl (0.2-1.3) H D 07/26/23 07:13
AST 68 U/L (14-36) H 07/26/23 07:13
ALT 307 U/L (0-35) H 07/26/23 07:13
Alkaline Phosphatase 162 U/L (38-126) H 07/26/23 07:13
Lipase 133 U/L (23-300) 07/24/23 12:04
Vital Signs and I&O:
Vital Signs
Temp Pulse Resp BP Pulse Ox
97.6 F 60 14 110/65 100
07/26/23 13:52 07/26/23 13:52 07/26/23 13:52 07/26/23 13:52 07/26/23 13:52
I&O
07/25/23 07/26/23 07/27/23
06:59 06:59 06:59
Intake Total 1300 / 1300 430 / 430
Balance 1300 / 1300 430 / 430
--- NOTE | 2023-07-27 11:37 | W.DCSUMMARY ---
Discharge Summary
Discharge Data
Date of Admission: 07/24/23
Date of Discharge: 07/26/23
-
Pending Results: No
Hospital Course
Discharging Physician : Dr Maikol Maher
Disposition : Home
Primary care physician : Dr Hemalatha Fontenot
Principal Discharge diagnosis :
Acute choledocholithiasis causing obstructive jaundice
Cholelithiasis
Chronic Discharge diagnosis :
Obesity
Gastroesophageal reflux disease
History of Graves' disease
Hospital Course :
Patient is a 23-year-old female with above-mentioned past medical history came to ER with new onset of right epigastric pain with some radiation to back. Patient initially noticed symptoms started with eating fat-containing food, did not resolve
with symptomatic care. In ER lab evaluation showing patient having new obstructive jaundice with total bili of 12.5 and direct bilirubin of 7.5. An abdominal ultrasound showed cholelithiasis and enlarged bile duct of 85 mm. Case discussed with
gastroenterology and general surgery and patient started on empiric antibiotics. Patient had a follow-up MRI MRCP which confirmed distal CBD stone causing obstruction and dilation of proximal ducts. Patient had an elective ERCP with sphincterotomy
and stone removal, no complication postprocedure. Following day patient was taken for elective laparoscopic cholecystectomy. Again postoperative course remained uncomplicated. Patient was discharged home with follow-up with general surgery in
office at this point.
Important imaging findings :
MRI abdomen
Subtle dependent small foci of decreased T2 signal intensity within the posterior aspect of the gallbladder lumen, compatible with sludge and/or small stones. The gallbladder is distended. There is a small amount of edema between the gallbladder and
the liver.
Diffuse intrahepatic bile duct dilation, as well as dilation of the common hepatic duct and the common bile duct. There is a filling defect within the distal common bile duct, compatible with common bile duct calculus, with measured diameter of 6 mm.
�
Procedure findings :
07/24 ERCP
- A filling defect consistent with a stone was seen on the cholangiogram.
- The common bile duct was mildly dilated.
- Choledocholithiasis was found. Complete removal was accomplished by biliary sphincterotomy and balloon extraction.
- A biliary sphincterotomy was performed.
- Major papilla was successfully dilated.
- The biliary tree was swept and small amount of pus was found.
07/25 Alex cholecystectomy
Tensely distended and inflamed GB with significant wall thickening.� anterior cystic artery and posterior branch controlled with clips.� dilated cystic duct isolated and divided with endo TUCKER cat 30mm stapler.� no disruption of GB with
cholecystectomy.
Discharge Plan
-
Patient Disposition: Home (Routine Discharge)
Discharge Diagnosis/Procedures: Choledocholithiasis, cholecystitis. ERCP. Laparoscopic cholecystectomy
Condition: Good
Diet: Low Fat
Additional Diets: Smaller meals as abdominal bloating and distention may be common the first few days postop.
You may notice loose stools for 4-6 weeks after surgery with greasy/high fat foods, if this is the case stick to a low fat diet.
Activity: No strenuous activity
Additional Activity: Do not lift more than 15 pounds for the next 3 weeks
Driving Restrictions: No driving for 24 hours
Bathing Restrictions: OK to Shower
Wound Care: Glue at surgical sites typically peels off in 2 to 3 weeks
Activity Restrictions/Additional Instructions:
Call your surgeon if you have a fever >100.5, worsening abdominal pain or nausea with vomiting
Referrals:
Shane Gorman MD [Active] - in two weeks
Hemalatha Fontenot CRNP [Family Provider] - in one week
Prescriptions:
New
tramadol 50 mg tablet
50 mg PO Q8H PRN (Reason: Mod sev pain) Qty: 10 0RF
Continued
pantoprazole [Protonix] 40 mg tablet,delayed release (DR/EC)
40 mg PO DAILY Qty: 30 0RF
desogestrel-ethinyl estradiol [Apri] 0.15-0.03 mg tablet
1 tab PO DAILY@1530
ibuprofen 200 mg Capsule
400 mg PO Q6H PRN (Reason: mild pain/fever/cramping)
acetaminophen 325 MG tablet
650 mg PO Q4HPRN PRN (Reason: mild pain/fever)
Discontinued
sucralfate [Carafate] 1 gram tablet
1 g PO ACHS Qty: 40 0RF
Rx Instructions:
30min-1 hour before meals and HS, Dissolve in 10ml of water and drink
Discharge Orders:
Discharge Patient (As Directed); Ordered 07/26/23
Ordered By: Maikol Maher
Discharge Date and Time
Discharge Date/Time: 07/26/23 18:43
== END 2023-07-26 18:43 | disposition home or self-care (01) | DRG 418 ==
LOC: 2 SOUTH 18:22
PROVIDERS: Emergency Medicine; Internal Medicine Gastroenterology; Nurse Practitioner; Physician Assistant; ADMITTING PHYSICIAN Hospitalist; CONSULT PHYSICIAN Internal Medicine Gastroenterology; CONSULT PHYSICIAN Surgery; EMERGENCY PHYSICIAN Emergency Medicine; FAMILY PHYSICIAN Registered Nurse
PROC: BF111ZZ Fluoroscopy of Biliary and Pancreatic Ducts using Low Osmolar Contrast (ICD-10-PCS; 2023-07-25)
PROC: 0F7D8ZZ Dilation of Pancreatic Duct, Via Natural or Artificial Opening Endoscopic (ICD-10-PCS; 2023-07-25)
PROC: 0FC98ZZ Extirpation of Matter from Common Bile Duct, Via Natural or Artificial Opening Endoscopic (ICD-10-PCS; 2023-07-25)
PROC: 0FT44ZZ Resection of Gallbladder, Percutaneous Endoscopic Approach (ICD-10-PCS; 2023-07-26)
DX: K80.63 Calculus of gallbladder and bile duct with acute cholecystitis with obstruction (principal); R17 Unspecified jaundice; E05.00 Thyrotoxicosis with diffuse goiter without thyrotoxic crisis or storm; E21.3 Hyperparathyroidism, unspecified; R74.8 Abnormal levels of other serum enzymes; K21.9 Gastro-esophageal reflux disease without esophagitis; E66.9 Obesity, unspecified; Z88.0 Allergy status to penicillin; Z87.891 Personal history of nicotine dependence; Z88.8 Allergy status to other drugs, medicaments and biological substances; Z91.040 Latex allergy status; Z68.26 Body mass index [BMI] 26.0-26.9, adult
CPT/HCPCS: 88304; 74181; 74330; 76000; 76700; 80053; 81003; 81015; 82248; 82550; 83605; 83690; 84703; 85025; 85027; 85610; 86705; 86706; 86709; 86803; 87040; 87340; 96361; 96365; 96366; 96375; 99285; C1726; C1769